=== PATIENT | male | born 1985 | race Caucasian/White ===

== ENCOUNTER 2023-03-07 08:52 | Emergency (ER) | payer MEDICAID ==
[~2023-03-07] VITALS: Ht 175.3 cm; Wt 113.4 kg
--- NOTE | 2023-03-07 09:03 | NUR ---
PATIENT CAME TO EMERGENCY DEPARTMENT WITH COMPLAINTS OF DEHYDRATED AFTER DRINKING .ALERT AND ORIENTED*4.ON ROOM AIR.ATTACHED TO LASTING ROOM MACHINE OPERATOR AND PULSE OXYMETER.AWAITING MD FOR EVALUATION.
--- NOTE | 2023-03-07 09:08 | NUR ---
DR PERRY AT BED SIDE FOR PATIENT EVALUATION.
[2023-03-07] MEDS ORDERED: CHLO25CA22 PO (09:13)
--- NOTE | 2023-03-07 09:22 | NUR ---
PATIENT DISCHARGED WITH PRESCRIBED MEDICATION.
[2023-03-07 09:23] VITALS: BP 154/109; TEMP 98; O2SAT 96
--- NOTE | 2023-03-07 09:23 | NUR ---
Patient discharged to home in stable condition. Written and verbal after care instructions given. Patient verbalizes understanding of instruction.
== END 2023-03-07 09:24 | disposition home or self-care (01) ==
LOC: ER 08:54
DX: F10.90 Alcohol use, unspecified, uncomplicated (principal); F17.200 Nicotine dependence, unspecified, uncomplicated; Z79.899 Other long term (current) drug therapy; Y90.9 Presence of alcohol in blood, level not specified

== ENCOUNTER 2023-06-13 11:47 | Emergency (ER) | payer MEDICAID ==
[~2023-06-13] VITALS: Ht 175.3 cm; Wt 111.1 kg
[~2023-06-13 11:47] MED LIST: CHLO25CA22 PO
[2023-06-13] MEDS ORDERED: PHENOBARBITAL SODIUM 130 MG/ML VIAL IV ONE (13:00)
[2023-06-13] MEDS ORDERED: IV NS 0.9% 1,000 ML BAG IV ONE (13:00)
[2023-06-13] MEDS ORDERED: PHENOBARBITAL SODIUM 130 MG/ML VIAL ONE (13:07)
[2023-06-13 13:24] LABS: BASOPHILS # (AUTO) 0.1 K/uL (0.0-0.2); BASOPHILS % (AUTO) 0.8 % (0.0-2.0); EOSINOPHILS # (AUTO) 0.1 K/uL (0.0-0.7); EOSINOPHILS % (AUTO) 0.9 % (0.0-6.0); HEMATOCRIT 46 % (39-51); HEMOGLOBIN 15.4 g/dL (13.5-17.5); LYMPHOCYTES # (AUTO) 2.5 K/uL (0.8-4.8); LYMPHOCYTES % (AUTO) 18.2 % (20.0-44.0); MEAN CORPUSCULAR HEMOGLOBIN 30 PG (26.0-33.0); MEAN CORPUSCULAR HGB CONC 33 g/dl (31.0-36.0); MEAN CORPUSCULAR VOLUME 92 fL (80-96); MONOCYTES # (AUTO) 0.7 K/uL (0.1-1.30); MONOCYTES % (AUTO) 5.3 % (2.0-12.0); NEUTROPHILS # (AUTO) 10.1 K/uL (1.8-8.9); NEUTROPHILS % (AUTO) 74.8 % (43.0-81.0); PLATELET COUNT (AUTO) 374 K/uL (150-450); RED BLOOD CELL COUNT(AUTO) 5.06 MIL/uL (4.5-6.0); RED CELL DISTRIBUTION WIDTH 14.1 % (11.5-15.0); WHITE BLOOD COUNT (AUTO) 13.5 K/uL (4.3-11.0)
[2023-06-13 13:34] LABS: CALCIUM, SERUM 8.8 mg/dL (8.5-10.1); CREATININE 0.8 mg/dL (0.6-1.3); POTASSIUM 3.8 mmol/L (3.5-5.1)
[2023-06-13 13:40] LABS: ALBUMIN 2.5 g/dL (3.4-5.0); BILIRUBIN,DIRECT 0.1 mg/dL (0.0-0.2); BILIRUBIN,TOTAL 0.2 mg/dL (0.2-1.0); TOTAL PROTEIN, SERUM 6.7 g/dL (6.4-8.2)
[2023-06-13 15:03] VITALS: BP 134/81; TEMP 98; O2SAT 100
== END 2023-06-13 15:03 | disposition home or self-care (01) ==
LOC: ER 12:41
DX: S92.531A Displaced fracture of distal phalanx of right lesser toe(s), initial encounter for closed fracture (principal); F10.239 Alcohol dependence with withdrawal, unspecified; F41.9 Anxiety disorder, unspecified; F17.210 Nicotine dependence, cigarettes, uncomplicated; Z79.899 Other long term (current) drug therapy; X58.XXXA Exposure to other specified factors, initial encounter; Y93.89 Activity, other specified; Y92.89 Other specified places as the place of occurrence of the external cause; Y99.8 Other external cause status; Y90.9 Presence of alcohol in blood, level not specified
CPT/HCPCS: 99284; 96374; 96361; 99406; 73660; 85025; 80048; 80076; 36415; J2560; J7030

== ENCOUNTER 2023-08-03 14:00 | Emergency (ER) | payer MEDICAID ==
[~2023-08-03] VITALS: Ht 266.7 cm; Wt 106.6 kg
[2023-08-03] MEDS ORDERED: LORA-259 PO ×2 (16:01→18:02)
[2023-08-03 16:35] VITALS: BP 129/86; TEMP 97.9; O2SAT 99
== END 2023-08-03 16:35 | disposition home or self-care (01) ==
LOC: ER 14:06
DX: F10.139 Alcohol abuse with withdrawal, unspecified (principal); Y90.9 Presence of alcohol in blood, level not specified

== ENCOUNTER 2024-05-30 17:41 | Emergency (ER) | payer MEDICAID, OTHER ==
[~2024-05-30] VITALS: Ht 177.8 cm; Wt 102.5 kg
[~2024-05-30 17:41] MED LIST changes: +LORA-259 PO
[2024-05-30] MEDS ORDERED: ALLO100T PO (19:11)
[2024-05-30] MEDS ORDERED: IBUP-1957 PO (19:11)
[2024-05-30] MEDS ORDERED: IBUPROFEN 400 MG TABLET ONE (19:22)
[2024-05-30] MEDS: IBUPROFEN 400 MG TABLET PO ONE (19:23)
[2024-05-30] MEDS ORDERED: KETOROLAC TROMETHAMINE INJ 30 MG/ML VIAL ONE (19:32)
[2024-05-30] MEDS: KETOROLAC TROMETHAMINE INJ 30 MG/ML VIAL IM ONE (19:48)
[2024-05-30 19:53] VITALS: BP 122/88; TEMP 98.3; O2SAT 96
== END 2024-05-30 19:54 | disposition home or self-care (01) ==
LOC: ER 17:44
DX: M10.9 Gout, unspecified (principal); F17.200 Nicotine dependence, unspecified, uncomplicated; Z79.899 Other long term (current) drug therapy; Z87.19 Personal history of other diseases of the digestive system
CPT/HCPCS: 99283; 96372; 84550; 36415; J1885

== ENCOUNTER 2024-06-28 14:55 | Emergency (ER) | payer MEDICAID, OTHER ==
[~2024-06-28] VITALS: Ht 172.7 cm; Wt 104.3 kg
[~2024-06-28 14:55] MED LIST changes: +ALLO100T PO; +IBUP-1957 PO
[2024-06-28 15:14] VITALS: BP 132/78; TEMP 97.8
[2024-06-28] MEDS ORDERED: LORA-815 PO (15:38)
[2024-06-28 16:23] VITALS: O2SAT 96
== END 2024-06-28 16:24 | disposition home or self-care (01) ==
LOC: ER 14:59
DX: J32.9 Chronic sinusitis, unspecified (principal); F17.200 Nicotine dependence, unspecified, uncomplicated; Z79.1 Long term (current) use of non-steroidal anti-inflammatories (NSAID)

== ENCOUNTER 2025-01-31 20:02 | Emergency (ER) | payer MEDICAID ==
[~2025-01-31] VITALS: Ht 180.3 cm; Wt 108.9 kg
[~2025-01-31 20:02] MED LIST changes: +LORA-815 PO
[2025-01-31] MEDS ORDERED: AMOX-430 PO (20:49)
[2025-01-31] MEDS ORDERED: PRED50TA PO (20:49)
[2025-01-31] MEDS ORDERED: IBUP-1490 PO (20:49)
[2025-01-31 20:57] VITALS: BP 124/80; TEMP 97.9; O2SAT 94
== END 2025-01-31 20:58 | disposition home or self-care (01) ==
LOC: ER 20:09
DX: J32.9 Chronic sinusitis, unspecified (principal); F17.200 Nicotine dependence, unspecified, uncomplicated; Z79.1 Long term (current) use of non-steroidal anti-inflammatories (NSAID); Z79.899 Other long term (current) drug therapy

== ENCOUNTER 2025-06-24 19:50 | Emergency (ER) | payer OTHER ==
[~2025-06-24] VITALS: Ht 175.3 cm; Wt 113.4 kg
[~2025-06-24 19:50] MED LIST changes: +AMOX-430 PO; +IBUP-1490 PO; +PRED50TA PO
[2025-06-24 20:18] VITALS: TEMP 98.7
[2025-06-24] MEDS ORDERED: MAG HYDROX/AL HYDROX/SIMETH 30 ML UDC ONE (20:55)
[2025-06-24] MEDS ORDERED: LIDOCAINE VISCOUS 2% UD 15 ML UDC ONE (20:55)
[2025-06-24] MEDS: LIDOCAINE VISCOUS 2% UD 15 ML UDC MM ONE (20:58)
[2025-06-24] MEDS: MAG HYDROX/AL HYDROX/SIMETH 30 ML UDC PO ONE (20:58)
[2025-06-24 21:05] VITALS: BP 139/105
[2025-06-24 22:22] VITALS: O2SAT 96
== END 2025-06-24 22:23 | disposition home or self-care (01) ==
LOC: ER 19:53
DX: T18.128A Food in esophagus causing other injury, initial encounter (principal); F41.9 Anxiety disorder, unspecified; F17.200 Nicotine dependence, unspecified, uncomplicated; Z79.1 Long term (current) use of non-steroidal anti-inflammatories (NSAID); Z79.52 Long term (current) use of systemic steroids; Z79.899 Other long term (current) drug therapy; W44.F3XA Food entering into or through a natural orifice, initial encounter; Y93.89 Activity, other specified; Y92.89 Other specified places as the place of occurrence of the external cause; Y99.8 Other external cause status

== ENCOUNTER 2025-07-20 00:42 | Emergency (ER) | payer OTHER ==
[~2025-07-20] VITALS: Ht 175.3 cm; Wt 113.4 kg
[2025-07-20] MEDS ORDERED: LORAZEPAM 1 MG TABLET ONE (01:49)
[2025-07-20] MEDS: LORAZEPAM 1 MG TABLET PO ONE (01:54)
[2025-07-20 02:00] VITALS: BP 139/81; TEMP 98.1; O2SAT 98
== END 2025-07-20 02:12 | disposition home or self-care (01) ==
LOC: ER 00:48
DX: F41.9 Anxiety disorder, unspecified (principal); F17.200 Nicotine dependence, unspecified, uncomplicated; Z79.1 Long term (current) use of non-steroidal anti-inflammatories (NSAID); Z79.52 Long term (current) use of systemic steroids; Z79.899 Other long term (current) drug therapy